=== PATIENT | male | born 2000 | race African-American/Black ===

== ENCOUNTER 2023-07-15 20:22 | Emergency (ER) | payer OTHER ==
[2023-07-15 20:47] LABS: #Basophils 0.1 thou/uL (0.0-0.2); #Eosinphils 0.3 thou/uL (0.0-0.7); #Lymphocytes 2.2 thou/uL (1.20-3.40); #Monocytes 0.6 thou/uL (0.11-0.59); #Neutrophils 2.1 thou/uL (1.40-6.50); %Eosinophils 6.5 % (0.0-10.0); %Lymphocytes 41.7 % (21.0-51.0); %Monocytes 10.5 % (0.0-10.0); %Neutrophils 40.3 % (42.0-75.0); Hematocrit 48.4 % (42.0-52.0); Hemoglobin 16.1 g/dL (14.0-18.0); Mean Corpuscular HGB CONC 33.2 g/dL (32.0-36.0); Mean Corpuscular Hemoglobin 30.2 pg (27.0-31.0); Mean Corpuscular Volume 90.9 fl (78.0-98.0); Mean Platelet Volume 7.1 fL (7.4-10.4); Platelet Count 203 10x3/uL (130-400); Red Blood Cell (RBC) Count 5.33 mill/uL (4.70-6.10); White Blood Cell (WBC) Count 5.3 10x3/uL (4.8-10.8)
[2023-07-15 21:05] LABS: ALT (SGPT) 20 U/L (8-55); AST (SGOT) 15 U/L (5-34); Albumin 4.1 g/dL (3.5-5.0); Alkaline Phosphatase 69 U/L (40-110); Anion Gap 13 mmol/L (10-20); BUN (Urea Nitrogen) 12 mg/dL (8.9-20.6); Bilirubin, Total 0.4 mg/dL (0.2-1.2); Calc. Creatinine Clearance 0 mL/min (70-130); Carbon Dioxide 22 mmol/L (22-29); Chloride 106 mmol/L (98-107); Estimated GFR 124; Globulin 2.8 g/dL (2.4-3.5); Glucose 104 mg/dL (70-105); Potassium 4.1 mmol/L (3.5-5.1); Protein, Total 6.9 g/dL (6.0-8.3); Sodium 137 mmol/L (136-145)
[2023-07-15 21:07] LABS: Troponin I Less than 0.010 ng/mL (< 0.028)
[2023-07-15] MEDS ORDERED: Pantoprazole 40 MG VIAL ONE (21:11)
[2023-07-15] MEDS ORDERED: Ketorolac Tromethamine 30 MG/ML VIAL ONE (21:11)
== END 2023-07-15 21:42 ==
LOC: NAV ERS 20:22
DX: R07.2 Precordial pain (principal); F17.210 Nicotine dependence, cigarettes, uncomplicated
CPT/HCPCS: 71045; 80053; 84484; 85025; 93005; 96374; 96375; C9113; J1885

== ENCOUNTER 2024-08-23 22:22 | Emergency (ER) | payer OTHER ==
[2024-08-23 23:25] LABS: #Basophils 0.1 thou/uL (0.0-0.2); #Eosinophils 0.2 thou/uL (0.0-0.7); #Lymphocytes 2.2 thou/uL (1.20-3.40); #Monocytes 0.5 thou/uL (0.11-0.59); #Neutrophils 2.2 thou/uL (1.40-6.50); %Basophils 2.1 % (0.0-1.0); %Eosinophils 3.9 % (0.0-10.0); %Lymphocytes 41.6 % (21.0-51.0); %Monocytes 9.8 % (0.0-10.0); %Neutrophils 42.6 % (42.0-75.0); Hematocrit 47.9 % (42.0-52.0); Hemoglobin 16.4 g/dL (14.0-18.0); Mean Corpuscular HGB CONC 34.1 g/dL (32.0-36.0); Mean Corpuscular Hemoglobin 29.5 pg (27.0-31.0); Mean Corpuscular Volume 86.4 fl (78.0-98.0); Mean Platelet Volume 6.2 fL (7.4-10.4); Platelet Count 245 10x3/uL (130-400); RBC Distribution Width 10.2 % (11.5-14.5); Red Blood Cell (RBC) Count 5.55 mill/uL (4.70-6.10); White Blood Cell (WBC) Count 5.2 10x3/uL (4.8-10.8)
[2024-08-23 23:45] LABS: Troponin I Less than 0.010 ng/mL (< 0.028)
[2024-08-23 23:48] LABS: ALT (SGPT) 23 U/L (8-55); AST (SGOT) 20 U/L (5-34); Albumin 4.2 g/dL (3.5-5.0); Alkaline Phosphatase 53 U/L (40-110); Anion Gap 15 mmol/L (10-20); BUN (Urea Nitrogen) 10 mg/dL (8.9-20.6); Bilirubin, Total 0.6 mg/dL (0.2-1.2); Calc. Creatinine Clearance 0 mL/min (70-130); Calcium 9.6 mg/dL (7.8-10.44); Carbon Dioxide 23 mmol/L (22-29); Chloride 104 mmol/L (98-107); Estimated GFR 112; Globulin 3.7 g/dL (2.4-3.5); Glucose 92 mg/dL (70-105); Lipase 33 U/L (8-78); Potassium 4.2 mmol/L (3.5-5.1); Protein, Total 7.9 g/dL (6.0-8.3); Sodium 138 mmol/L (136-145)
[2024-08-24] MEDS ORDERED: Aspirin 325 MG TAB ONE (00:03)
[2024-08-24] MEDS ORDERED: Ondansetron PF 4 MG/2 ML Vial ONE (00:04)
[2024-08-24] MEDS ORDERED: Famotidine/PF 20 mg/2ml Vial ONE (00:04)
[2024-08-24] MEDS ORDERED: HYDROcodone/Acetaminophen 5/325 mg Tablet ONE (00:04)
== END 2024-08-24 00:29 | disposition home or self-care (01) ==
LOC: NAV ERS 22:22
DX: K21.9 Gastro-esophageal reflux disease without esophagitis (principal); R07.89 Other chest pain; I10 Essential (primary) hypertension; J45.909 Unspecified asthma, uncomplicated; Z79.51 Long term (current) use of inhaled steroids; Z87.891 Personal history of nicotine dependence; Z79.899 Other long term (current) drug therapy
CPT/HCPCS: 36415; 71046; 80053; 83690; 83880; 84484; 85025; 93005; 96374; 96375; J2405; J3490